=== PATIENT | female | born 1960 | race Caucasian/White ===

== ENCOUNTER 2019-03-20 07:06 | Day surgery (SDC) | payer BC ==
[~2019-03-20 07:06] MED LIST: Bupivacaine 0.5%/EPINEPHrine 1:200,000 30 ML SDV ONE; Lactated Ringers 1,000 ML IV SCH; Midazolam 1 MG/ML 2 ML SDV ONE; Propofol 200 MG/20 ML SDV ONE; Sodium Chloride 0.9% 10 ML Syringe FLUSH PRN; ceFAZolin 1 GM Vial ONE; fentaNYL 100 MCG/2 ML SDV ONE
[2019-03-20] MEDS ORDERED: ceFAZolin 1 GM Vial ONE ×2 (07:44→08:43)
[2019-03-20] MEDS ORDERED: Lactated Ringers 1,000 ML ONE (07:44)
[2019-03-20] MEDS ORDERED: fentaNYL 100 MCG/2 ML SDV IV ONE (08:24)
[2019-03-20] MEDS ORDERED: Midazolam 1 MG/ML 2 ML SDV IV ONE (08:24)
[2019-03-20] MEDS ORDERED: Ondansetron 4 MG/2 ML SDV IV ONE (08:24)
[2019-03-20] MEDS ORDERED: ceFAZolin 1 GM Vial IV ONE (08:24)
[2019-03-20] MEDS ORDERED: Neostigmine Methylsulfate 10 MG/10 ML MDV IV ONE (08:24)
[2019-03-20] MEDS ORDERED: Rocuronium 50 MG/5 ML Vial IV ONE (08:24)
[2019-03-20] MEDS ORDERED: Propofol 200 MG/20 ML SDV IV ONE (08:24)
[2019-03-20] MEDS ORDERED: Glycopyrrolate 0.2 MG/ML 5 ML MDV IV ONE (08:24)
[2019-03-20] MEDS ORDERED: Succinylcholine 200 MG/10 ML MDV IV ONE (08:24)
[2019-03-20] MEDS ORDERED: Bupivacaine 0.5%/EPINEPHrine 1:200,000 30 ML SDV INJECT ONE (08:43)
[2019-03-20] MEDS ORDERED: Sodium Chloride 0.9% 20 ML SDV ONE (08:43)
[2019-03-20] MEDS ORDERED: fentaNYL 100 MCG/2 ML SDV ONE (09:09)
--- NOTE | 2019-03-20 11:09 | PCM.OPNOTE ---
- General Post-Op/Procedure Note Date of Surgery/Procedure: 03/20/19 Operative Procedure(s): Recurrent ventral incisional herniorrhaphy, repair with Marlex mesh.. Release of small bowel adhesions. Pre Op Diagnosis: Recurrent ventral incisional hernia Symptomatic. Post-Op Diagnosis: Same Anesthesia Technique: General ET Tube, Moderate Sedation Primary Surgeon: Alejandro Randall Complications: None Condition: Good Free Text/Narrative:: Preop diagnosis: Recurrent ventral incisional abdominal hernia, symptomatic Postoperative diagnosis: As above. Procedure performed: Repair of recurrent ventral incisional abdominal hernia with Marlex mesh and release small bowel limitations. under general anesthesia. Informed consent was obtained from the patient regarding this procedure. All possible complications were discussed including the possibility of infection, bleeding, bowel problems, repeat operation and recurrence etc. The patient understood these complications and decided to proceed. The patient was taken to the operating room and kept in the supine position. A timeout was performed. A satisfactory general anesthetic was administered by the armament mechanic. Injection of 2 g of Ancef IV was given to the patient. The abdomen was thoroughly prepped and draped in the usual fashion. A vertical incision was made directly over the hernia site. Subcutaneous dissection was performed. Very little subcutaneous tissue was present. We readily came upon the fascia that was covering the bowel in the hernia. It appeared that this bowel contents where outside in the subcutaneous tissue for quite a long time. Bowel contents were mostly loops of small bowel. The peritoneum was slightly opened and the adhesions between the small bowel loops were lysed and the small bowel was repositioned back into the abdominal cavity. The margins of the defect were carefully identified by sharp dissection laterally to the fascial edges. The peritoneal defect was closed with 0 Polysorb suture after making sure the bowel was not kinked in any way. The fascia was then closed using 0 silk sutures. A Marlex mesh was cut to size and the fascia was reinforced with the mesh using 0 silk sutures. The cutaneous tissue was approximated using 0 Polysorb suture after thorough irrigation. A round Jacobo-Soto drain was also left in the subcutaneous tissue and brought out to the right lateral inferior part of the incision. The skin was closed with stainless steel clips. The patient tolerated the entire procedure well. Blood loss was 10-15 mL. No intraoperative complications were encountered. She was transferred to the recovery room in an excellent condition. Sponge needle and instrument count were correct.
[2019-03-20] MEDS ORDERED: Morphine 4 MG/ML Syringe IVPUSH PRN (11:46)
[2019-03-20] MEDS ORDERED: Ondansetron 4 MG Tab.DIS PO ONE (15:14)
== END 2019-03-20 18:30 | disposition home or self-care (01) ==
LOC: KA.SDS 07:06
PROVIDERS: ATTEND Family Medicine
DX: K43.2 Incisional hernia without obstruction or gangrene (principal); E78.00 Pure hypercholesterolemia, unspecified; E03.9 Hypothyroidism, unspecified; Z79.01 Long term (current) use of anticoagulants; Z86.718 Personal history of other venous thrombosis and embolism; Z90.710 Acquired absence of both cervix and uterus; Z79.899 Other long term (current) drug therapy
CPT/HCPCS: 49565; 49568; A9270; J0330; J0690; J2250; J2270; J2405; J2704; J2710; J3010; J3490; J7120; C1781